=== PATIENT | male | born 1950 | race American Indian/Alaskan Native ===

== ENCOUNTER 2016-07-26 19:47 | Inpatient (IN) | payer MEDICARE ==
[2016-07-26 20:37] LABS: Basophils % (Auto) 1.4 % (0.0-1.8); Eosinophils % (Auto) 0.2 % (0.0-4.3); Hematocrit 35.1 % (35.5-45.6); Hemoglobin 11.8 gm/dl (11.8-15.2); Mean Corpuscular HGB Conc 34 % (32-34); Mean Corpuscular Hemoglobin 33 pg (28-32); Mean Corpuscular Volume 98 fl (84-94); Platelet Count 267 K/mm3 (140-440); Red Blood Count 3.59 M/mm3 (3.65-5.03); Red Cell Distribution Width 14.4 % (13.2-15.2); White Blood Count 12.3 K/mm3 (4.5-11.0)
[2016-07-26] MEDS ORDERED: XOPENEX IH ONE (20:47)
[2016-07-26] MEDS ORDERED: ATROVENT IH ONE (20:47)
--- NOTE | 2016-07-26 20:52 | Emergency Department Report ---
ED Shortness of Breath HPI - General Chief Complaint: Dyspnea/Respdistress Stated Complaint: LOW O2 Time Seen by Provider: 07/26/16 20:40 Source: patient, EMS Mode of arrival: Stretcher Limitations: No Limitations - History of Present Illness Initial Comments: 65-year-old male with a past medical history dementia, hypertension, alcohol and drug abuse, and chronic knee pain presents to the hospital from anger with hypoxia. Patient drove himself to [facility] to be admitted for alcohol and cocaine detox. Patient is drowsy but arousable to tactile stimulation and voice. He is oriented to year, self, and states places [facility]. Patient is inconsistent with his history first he states he did not have any drugs today than he states he had alcohol and cocaine 4-5 hours ago. He complains of continued chronic knee pain and denies any chest pain, cough, or shortness of breath. He does smoke cigarettes but denies lung disease or home oxygen use. - Related Data Home Medications Medication Instructions Recorded Confirmed Last Taken Atarax 25 mg PO DAILY 07/26/16 07/26/16 Unknown Descovy 200-25 mg Tablet 25 mg PO DAILY 07/26/16 07/26/16 Unknown Kaletra 200-50 mg 200 mg PO BID 07/26/16 07/26/16 Unknown PriLOSEC 20 mg PO DAILY 07/26/16 07/26/16 Unknown Zestril 20 mg PO DAILY 07/26/16 07/26/16 Unknown metFORMIN 1,000 mg PO DAILY 07/26/16 07/26/16 Unknown Previous Rx's Medication Instructions Recorded Last Taken Type Azithromycin [Zithromax TAB] 500 mg PO QDAY #4 tablet 07/27/16 Unknown Rx Ipratropium/Albuterol Sulfate 1 spray IH QID #1 aer.w.adap 07/27/16 Unknown Rx [Combivent Respimat] Prednisone [predniSONE 5 mg (6-Day 5 mg PO .TAPER #1 tab.ds.pk 07/27/16 Unknown Rx Pack, 21 Tabs)] Allergies Allergy/AdvReac Type Severity Reaction Status Date / Time Sulfa (Sulfonamide Allergy Anaphylaxis Verified 07/26/16 20:03 Antibiotics) ED Review of Systems ROS: Stated complaint: LOW O2 Other details as noted in HPI Comment: All other systems reviewed and negative Other: Constitutional: No fevers chills Eyes: No eye pain visual changes ENT: No ear pain or throat pain Neck: Denies pain Respiratory: Denies cough wheezing Cardiovascular: Denies chest pain, palpitations, syncope GI: Denies abdominal pain, nausea, vomiting, diarrhea : Denies dysuria Musculoskeletal: Denies back pain Skin: Denies rash, lesions, erythema Neurologic: Denies headache, numbness, weakness Psychiatric: Denies suicidal ideation, hallucinations ED Past Medical Hx - Past Medical History Previous Medical History?: Yes Hx Hypertension: Yes Hx Psychiatric Treatment: Yes (ETOH abuse) Hx Dementia: Yes Additional medical history: chronic knee pain - Surgical History Past Surgical History?: Yes - Social History Smoking Status: Current Every Day Smoker Substance Use Type: Alcohol - Medications Home Medications: Home Medications Medication Instructions Recorded Confirmed Last Taken Type Atarax 25 mg PO DAILY 07/26/16 07/26/16 Unknown History Descovy 200-25 mg Tablet 25 mg PO DAILY 07/26/16 07/26/16 Unknown History Kaletra 200-50 mg 200 mg PO BID 07/26/16 07/26/16 Unknown History PriLOSEC 20 mg PO DAILY 07/26/16 07/26/16 Unknown History Zestril 20 mg PO DAILY 07/26/16 07/26/16 Unknown History metFORMIN 1,000 mg PO DAILY 07/26/16 07/26/16 Unknown History Azithromycin [Zithromax TAB] 500 mg PO QDAY #4 tablet 07/27/16 Unknown Rx Ipratropium/Albuterol Sulfate 1 spray IH QID #1 aer.w.adap 07/27/16 Unknown Rx [Combivent Respimat] Prednisone [predniSONE 5 mg (6-Day 5 mg PO .TAPER #1 tab.ds.pk 07/27/16 Unknown Rx Pack, 21 Tabs)] ED Physical Exam - General Limitations: No Limitations - Other Other exam information: General: Drowsy with inconsistent history Head exam: Atraumatic, normocephalic Eyes exam: Normal appearance, pupils equal reactive to light ENT: Moist mucous membrane, normal oropharynx Neck exam: Normal inspection, full range of motion, no meningismus nontender Respiratory exam: No tachypnea or accessory muscle use positive expiratory wheezing Cardiovascular: Normal rate and rhythm, normal heart sounds Abdomen: Soft, nondistended, and nontender, with normal bowel sounds, no rebound, or guarding Extremity: Full range of motion normal inspection no deformity Back: Normal Inspection, full range of motion, no tenderness Neurologic: Drowsy but arousable, oriented x3, cranial nerves intact, no motor or sensory deficit Psychiatric: normal affect, normal mood Skin: Warm, dry, intact ED Course Vital Signs 07/26/16 07/27/16 23:38 00:42 Pulse Rate 98 H Respiratory 16 Rate Blood Pressure 122/68 [Left] O2 Sat by Pulse 96 94 Oximetry - ABG Interpretation Ph: 7.83 PCO2: 44 PO2: 46 Bicarbonate: 26 Interpretation: other (hypoxia) ED Medical Decision Making - Lab Data Result diagrams: 07/27/16 05:32 07/27/16 05:32 Lab Results 07/26/16 07/26/16 07/26/16 Range/Units 20:19 20:19 20:19 WBC 12.3 H (4.5-11.0) K/mm3 RBC 3.59 L (3.65-5.03) M/mm3 Hgb 11.8 (11.8-15.2) gm/dl Hct 35.1 L (35.5-45.6) % MCV 98 H (84-94) fl MCH 33 H (28-32) pg MCHC 34 (32-34) % RDW 14.4 (13.2-15.2) % Plt Count 267 (140-440) K/mm3 Lymph % (Auto) 18.7 (13.4-35.0) % [place] % (Auto) 12.8 H (0.0-7.3) % Eos % (Auto) 0.2 (0.0-4.3) % Baso % (Auto) 1.4 (0.0-1.8) % Lymph # 2.3 (1.2-5.4) K/mm3 [place] # 1.6 H (0.0-0.8) K/mm3 Eos # 0.0 (0.0-0.4) K/mm3 Baso # 0.2 H (0.0-0.1) K/mm3 Seg Neutrophils % 66.9 (40.0-70.0) % Seg Neutrophils # 8.2 H (1.8-7.7) K/mm3 PT (12.2-14.9) Sec. INR (0.87-1.13) APTT (24.2-36.6) Sec. D-Dimer (0-234) ng/mlDDU POC ABG pH (7.35-7.45) POC ABG pCO2 (35-45) POC ABG pO2 (80-105) POC ABG HCO3 POC ABG Total CO2 POC ABG O2 Sat POC ABG Base Excess FiO2 % Sodium 137 (137-145) mmol/L Potassium 4.8 (3.6-5.0) mmol/L Chloride 100.4 (98-107) mmol/L Carbon Dioxide 26 (22-30) mmol/L Anion Gap 15 mmol/L BUN 10 (9-20) mg/dL Creatinine 0.8 (0.8-1.5) mg/dL Estimated GFR > 60 ml/min BUN/Creatinine Ratio 12.50 % Glucose 98 (75-100) mg/dL Calcium 9.1 (8.4-10.2) mg/dL Magnesium (1.7-2.3) mg/dL Total Bilirubin 0.80 (0.1-1.2) mg/dL Direct Bilirubin 0.3 H (0-0.2) mg/dL Indirect Bilirubin 0.5 mg/dL AST 23 (5-40) units/L ALT 19 (7-56) units/L Alkaline Phosphatase 94 (35-129) units/L Ammonia (25-60) umol/L Total Creatine Kinase 76 (55-170) units/L CK-MB (CK-2) 2.2 (0.0-4.0) ng/mL CK-MB (CK-2) Rel Index 2.8 (0-4) Troponin T < 0.010 (0.00-0.029) ng/mL Total Protein 8.2 (6.3-8.2) g/dL Albumin 3.6 L (3.9-5) g/dL Albumin/Globulin Ratio 0.8 % Urine Color (Yellow) Urine Turbidity (Clear) Urine pH (5.0-7.0) Ur Specific [place] (1.003-1.030) Urine Protein (Negative) mg/dL Urine Glucose (UA) (Negative) mg/dL Urine Ketones (Negative) mg/dL Urine Blood (Negative) Urine Nitrite (Negative) Urine Bilirubin (Negative) Urine Urobilinogen (<2.0) mg/dL Ur Leukocyte Esterase (Negative) Urine WBC (Auto) (0.0-6.0) /HPF Urine RBC (Auto) (0.0-6.0) /HPF U Epithel Cells (Auto) (0-13.0) /HPF Hyaline Casts /LPF Urine Mucus /HPF Urine Opiates Screen Urine Methadone Screen Ur Barbiturates Screen Ur Phencyclidine Scrn Ur Amphetamines Screen U Benzodiazepines Scrn Urine Cocaine Screen U Marijuana (THC) Screen Drugs of Abuse Note Plasma/Serum Alcohol (0-0.07) gm% 07/26/16 07/26/16 07/26/16 Range/Units 20:19 21:09 21:20 WBC (4.5-11.0) K/mm3 RBC (3.65-5.03) M/mm3 Hgb (11.8-15.2) gm/dl Hct (35.5-45.6) % MCV (84-94) fl MCH (28-32) pg MCHC (32-34) % RDW (13.2-15.2) % Plt Count (140-440) K/mm3 Lymph % (Auto) (13.4-35.0) % [place] % (Auto) (0.0-7.3) % Eos % (Auto) (0.0-4.3) % Baso % (Auto) (0.0-1.8) % Lymph # (1.2-5.4) K/mm3 [place] # (0.0-0.8) K/mm3 Eos # (0.0-0.4) K/mm3 Baso # (0.0-0.1) K/mm3 Seg Neutrophils % (40.0-70.0) % Seg Neutrophils # (1.8-7.7) K/mm3 PT 13.3 (12.2-14.9) Sec. INR 1.02 (0.87-1.13) APTT 30.9 (24.2-36.6) Sec. D-Dimer (0-234) ng/mlDDU POC ABG pH 7.381 (7.35-7.45) POC ABG pCO2 44.7 (35-45) POC ABG pO2 46 L (80-105) POC ABG HCO3 26.5 POC ABG Total CO2 28 POC ABG O2 Sat 81 POC ABG Base Excess 1 FiO2 21 % Sodium (137-145) mmol/L Potassium (3.6-5.0) mmol/L Chloride (98-107) mmol/L Carbon Dioxide (22-30) mmol/L Anion Gap mmol/L BUN (9-20) mg/dL Creatinine (0.8-1.5) mg/dL Estimated GFR ml/min BUN/Creatinine Ratio % Glucose (75-100) mg/dL Calcium (8.4-10.2) mg/dL Magnesium 1.80 (1.7-2.3) mg/dL Total Bilirubin (0.1-1.2) mg/dL Direct Bilirubin (0-0.2) mg/dL Indirect Bilirubin mg/dL AST (5-40) units/L ALT (7-56) units/L Alkaline Phosphatase (35-129) units/L Ammonia (25-60) umol/L Total Creatine Kinase (55-170) units/L CK-MB (CK-2) (0.0-4.0) ng/mL CK-MB (CK-2) Rel Index (0-4) Troponin T (0.00-0.029) ng/mL Total Protein (6.3-8.2) g/dL Albumin (3.9-5) g/dL Albumin/Globulin Ratio % Urine Color (Yellow) Urine Turbidity (Clear) Urine pH (5.0-7.0) Ur Specific [place] (1.003-1.030) Urine Protein (Negative) mg/dL Urine Glucose (UA) (Negative) mg/dL Urine Ketones (Negative) mg/dL Urine Blood (Negative) Urine Nitrite (Negative) Urine Bilirubin (Negative) Urine Urobilinogen (<2.0) mg/dL Ur Leukocyte Esterase (Negative) Urine WBC (Auto) (0.0-6.0) /HPF Urine RBC (Auto) (0.0-6.0) /HPF U Epithel Cells (Auto) (0-13.0) /HPF Hyaline Casts /LPF Urine Mucus /HPF Urine Opiates Screen Urine Methadone Screen Ur Barbiturates Screen Ur Phencyclidine Scrn Ur Amphetamines Screen U Benzodiazepines Scrn Urine Cocaine Screen U Marijuana (THC) Screen Drugs of Abuse Note Plasma/Serum Alcohol (0-0.07) gm% 07/26/16 07/26/16 07/26/16 Range/Units 21:20 21:20 21:20 WBC (4.5-11.0) K/mm3 RBC (3.65-5.03) M/mm3 Hgb (11.8-15.2) gm/dl Hct (35.5-45.6) % MCV (84-94) fl MCH (28-32) pg MCHC (32-34) % RDW (13.2-15.2) % Plt Count (140-440) K/mm3 Lymph % (Auto) (13.4-35.0) % [place] % (Auto) (0.0-7.3) % Eos % (Auto) (0.0-4.3) % Baso % (Auto) (0.0-1.8) % Lymph # (1.2-5.4) K/mm3 [place] # (0.0-0.8) K/mm3 Eos # (0.0-0.4) K/mm3 Baso # (0.0-0.1) K/mm3 Seg Neutrophils % (40.0-70.0) % Seg Neutrophils # (1.8-7.7) K/mm3 PT (12.2-14.9) Sec. INR (0.87-1.13) APTT (24.2-36.6) Sec. D-Dimer 383.65 H (0-234) ng/mlDDU POC ABG pH (7.35-7.45) POC ABG pCO2 (35-45) POC ABG pO2 (80-105) POC ABG HCO3 POC ABG Total CO2 POC ABG O2 Sat POC ABG Base Excess FiO2 % Sodium (137-145) mmol/L Potassium (3.6-5.0) mmol/L Chloride (98-107) mmol/L Carbon Dioxide (22-30) mmol/L Anion Gap mmol/L BUN (9-20) mg/dL Creatinine (0.8-1.5) mg/dL Estimated GFR ml/min BUN/Creatinine Ratio % Glucose (75-100) mg/dL Calcium (8.4-10.2) mg/dL Magnesium (1.7-2.3) mg/dL Total Bilirubin (0.1-1.2) mg/dL Direct Bilirubin (0-0.2) mg/dL Indirect Bilirubin mg/dL AST (5-40) units/L ALT (7-56) units/L Alkaline Phosphatase (35-129) units/L Ammonia 47.0 (25-60) umol/L Total Creatine Kinase (55-170) units/L CK-MB (CK-2) (0.0-4.0) ng/mL CK-MB (CK-2) Rel Index (0-4) Troponin T (0.00-0.029) ng/mL Total Protein (6.3-8.2) g/dL Albumin (3.9-5) g/dL Albumin/Globulin Ratio % Urine Color (Yellow) Urine Turbidity (Clear) Urine pH (5.0-7.0) Ur Specific [place] (1.003-1.030) Urine Protein (Negative) mg/dL Urine Glucose (UA) (Negative) mg/dL Urine Ketones (Negative) mg/dL Urine Blood (Negative) Urine Nitrite (Negative) Urine Bilirubin (Negative) Urine Urobilinogen (<2.0) mg/dL Ur Leukocyte Esterase (Negative) Urine WBC (Auto) (0.0-6.0) /HPF Urine RBC (Auto) (0.0-6.0) /HPF U Epithel Cells (Auto) (0-13.0) /HPF Hyaline Casts /LPF Urine Mucus /HPF Urine Opiates Screen Urine Methadone Screen Ur Barbiturates Screen Ur Phencyclidine Scrn Ur Amphetamines Screen U Benzodiazepines Scrn Urine Cocaine Screen U Marijuana (THC) Screen Drugs of Abuse Note Plasma/Serum Alcohol < 0.01 (0-0.07) gm% 07/26/16 07/26/16 Range/Units Unknown Unknown WBC (4.5-11.0) K/mm3 RBC (3.65-5.03) M/mm3 Hgb (11.8-15.2) gm/dl Hct (35.5-45.6) % MCV (84-94) fl MCH (28-32) pg MCHC (32-34) % RDW (13.2-15.2) % Plt Count (140-440) K/mm3 Lymph % (Auto) (13.4-35.0) % [place] % (Auto) (0.0-7.3) % Eos % (Auto) (0.0-4.3) % Baso % (Auto) (0.0-1.8) % Lymph # (1.2-5.4) K/mm3 [place] # (0.0-0.8) K/mm3 Eos # (0.0-0.4) K/mm3 Baso # (0.0-0.1) K/mm3 Seg Neutrophils % (40.0-70.0) % Seg Neutrophils # (1.8-7.7) K/mm3 PT (12.2-14.9) Sec. INR (0.87-1.13) APTT (24.2-36.6) Sec. D-Dimer (0-234) ng/mlDDU POC ABG pH (7.35-7.45) POC ABG pCO2 (35-45) POC ABG pO2 (80-105) POC ABG HCO3 POC ABG Total CO2 POC ABG O2 Sat POC ABG Base Excess FiO2 % Sodium (137-145) mmol/L Potassium (3.6-5.0) mmol/L Chloride (98-107) mmol/L Carbon Dioxide (22-30) mmol/L Anion Gap mmol/L BUN (9-20) mg/dL Creatinine (0.8-1.5) mg/dL Estimated GFR ml/min BUN/Creatinine Ratio % Glucose (75-100) mg/dL Calcium (8.4-10.2) mg/dL Magnesium (1.7-2.3) mg/dL Total Bilirubin (0.1-1.2) mg/dL Direct Bilirubin (0-0.2) mg/dL Indirect Bilirubin mg/dL AST (5-40) units/L ALT (7-56) units/L Alkaline Phosphatase (35-129) units/L Ammonia (25-60) umol/L Total Creatine Kinase (55-170) units/L CK-MB (CK-2) (0.0-4.0) ng/mL CK-MB (CK-2) Rel Index (0-4) Troponin T (0.00-0.029) ng/mL Total Protein (6.3-8.2) g/dL Albumin (3.9-5) g/dL Albumin/Globulin Ratio % Urine Color Yellow (Yellow) Urine Turbidity Clear (Clear) Urine pH 5.0 (5.0-7.0) Ur Specific [place] 1.011 (1.003-1.030) Urine Protein <15 mg/dl (Negative) mg/dL Urine Glucose (UA) Neg (Negative) mg/dL Urine Ketones Neg (Negative) mg/dL Urine Blood Sm (Negative) Urine Nitrite Neg (Negative) Urine Bilirubin Neg (Negative) Urine Urobilinogen < 2.0 (<2.0) mg/dL Ur Leukocyte Esterase Neg (Negative) Urine WBC (Auto) < 1.0 (0.0-6.0) /HPF Urine RBC (Auto) 3.0 (0.0-6.0) /HPF U Epithel Cells (Auto) < 1.0 (0-13.0) /HPF Hyaline Casts 1 /LPF Urine Mucus Few /HPF Urine Opiates Screen Presumptive negative Urine Methadone Screen Presumptive negative Ur Barbiturates Screen Presumptive negative Ur Phencyclidine Scrn Presumptive negative Ur Amphetamines Screen Presumptive negative U Benzodiazepines Scrn Presumptive positive Urine Cocaine Screen Presumptive positive U Marijuana (THC) Screen Presumptive negative Drugs of Abuse Note Disclamer Plasma/Serum Alcohol (0-0.07) gm% - EKG Data -: EKG Interpreted by Me (sinus tach 103, no stemi or t inv) - EKG Data When compared to previous EKG there are: previous EKG unavailable - Radiology Data Radiology results: report reviewed (cta chest: neg for pe, + chronic stephanie dz, left lung nodule), image reviewed (cxr: naf) - Medical Decision Making Patient has significant hypoxia room air with respiratory symptoms. Positive wheezing improved after nebs and steroids. Chest x-ray unremarkable. CT angiogram pending at disposition given the mild elevation in d-dimer. - Differential Diagnosis COPD, asthma, bronchitis, CHF, PE Critical Care Time: No Critical care attestation.: If time is entered above; I have spent that time in minutes in the direct care of this critically ill patient, excluding procedure time. ED Disposition Clinical Impression: Hypoxia, Acute bronchitis, Alcohol abuse, Cocaine abuse, Tobacco abuse Disposition: OP ADMITTED IP TO THIS HOSP Is pt being admited?: Yes Condition: Stable Time of Disposition: 23:29 (Dr ocasio/ ct pending)
[2016-07-26 20:53] LABS: Anion Gap 15 mmol/L; Blood Urea Nitrogen 10 mg/dL (9-20); Calcium 9.1 mg/dL (8.4-10.2); Carbon Dioxide 26 mmol/L (22-30); Chloride 100.4 mmol/L (98-107); Glucose 98 mg/dL (75-100); Potassium 4.8 mmol/L (3.6-5.0); Sodium 137 mmol/L (137-145)
[2016-07-26 21:01] LABS: Urine Drugs of Abuse Note Disclamer
[2016-07-26 21:13] LABS: Bilirubin,Urine NEG (Negative); Blood,Urine SM (Negative); Ketones,Urine NEG (Negative); Leukocyte Esterase,Urine NEG (Negative); Mucus,Urine FEW /HPF; Nitrite,Urine NEG (Negative); Protein,Urine <15 mg/dL mg/dL (Negative); Urobilinogen,Urine < 2.0 mg/dL (<2.0); WBC,Urine < 1.0 /HPF (0.0-6.0)
[2016-07-26 21:18] LABS: ISTAT Base Excess 1; ISTAT HCO3 26.5; ISTAT PCO2 44.7 (35-45); ISTAT PH 7.381 (7.35-7.45); ISTAT PO2 46 (80-105); ISTAT SO2 81; ISTAT TCO2 28
[2016-07-26 21:38] LABS: Creatine Kinase MB 2.2 ng/mL (0.0-4.0)
[2016-07-26 21:40] LABS: Albumin 3.6 g/dL (3.9-5); Albumin/Globulin Ratio 0.8 %; Bilirubin,Direct 0.3 mg/dL (0-0.2); Bilirubin,Indirect 0.5 mg/dL; Bilirubin,Total 0.8 mg/dL (0.1-1.2); Total Protein 8.2 g/dL (6.3-8.2)
[2016-07-26 21:54] LABS: INR 1.02 (0.87-1.13)
[2016-07-26 21:55] LABS: Partial Thromboplastin Time 30.9 Sec. (24.2-36.6)
[2016-07-26] MEDS ORDERED: VITAMIN B-1 100 MG, FOLVITE 1 MG, INFUVITE 10 ML in NACL 0.9% 1000 ML 1,000 ML IV ONE (22:00)
[2016-07-26] MEDS ORDERED: ATIVAN IV PRN ×2 (23:32)
--- NOTE | 2016-07-27 00:21 | History and Physical Report ---
History of Present Illness Date of examination: 07/27/16 Chief complaint: "They said I have trouble breathing" History of present illness: Patient is a 65-year-old man with history of HIV, type 2 diabetes mellitus, hypertension, GERD, OA of knees, tobacco dependency, polysubstance abuse including alcohol abuse and crack cocaine who initially drove himself to [place] for voluntary admission. Staff noticed that he was having trouble breathing with minimal activity so he brought to [facility] emergency department. Patient gives inconsistent history. He is denying any complaints. He falls asleep easily. Past medical history: As HPI Past surgical history: 2 arthroscopic surgeries on each knee Social history: Tobacco dependency, crack cocaine, alcohol abuse, benzodiazepine use Family history: Patient denies ROS: as HPI and all other ROS reviewed and negative. Medications and Allergies Allergies Allergy/AdvReac Type Severity Reaction Status Date / Time Sulfa (Sulfonamide Allergy Anaphylaxis Verified 07/26/16 20:03 Antibiotics) Home Medications Medication Instructions Recorded Confirmed Last Taken Type Atarax 25 mg PO DAILY 07/26/16 07/26/16 Unknown History Descovy 200-25 mg Tablet 25 mg PO DAILY 07/26/16 07/26/16 Unknown History Kaletra 200-50 mg 200 mg PO BID 07/26/16 07/26/16 Unknown History PriLOSEC 20 mg PO DAILY 07/26/16 07/26/16 Unknown History Zestril 20 mg PO DAILY 07/26/16 07/26/16 Unknown History metFORMIN 1,000 mg PO DAILY 07/26/16 07/26/16 Unknown History Active Meds: Active Medications Heparin Sodium (Porcine) (Heparin) 5,000 unit SUB-Q Q8HR YURIDIA Lorazepam (Ativan) 2 mg IV Q1HR PRN PRN Reason: CIWA-Ar 8-15 Lorazepam (Ativan) 4 mg IV Q1HR PRN PRN Reason: CIWA-Ar 16-25 Miscellaneous Medication (Prilosec) 20 mg PO DAILY YURIDIA Miscellaneous Medication (Zestril) 20 mg PO DAILY YURIDIA Miscellaneous Medication (Atarax) 25 mg PO DAILY YURIDIA Exam - Physical Exam Narrative exam: GEN: unkempt, WDWN, NAD at rest but he has conversational dyspnea moderate sensory muscle usage, somnolent, ORIENTATED 3 HEENT: NCAT, PERRL, EOMI, OP CLEAR NECK: SUPPLE, NO THYROMEGALY, NO JVD, NO LAD CVS: Regular tachycardia NORMAL S1S2 LUNGS/CHEST: Coarse bilateral rhonchi, NORMAL CHEST EXPANSION B, diminished AIR ENTRY B ABD: SOFT NTND, GBS, NO REBOUND OR GUARDING EXT/SKIN: NO SIGNIFICANT EDEMA, MULTIPLE EXCORIATIONS THORAX AND BACK FROM SCRATCHING MSK: FROM X 4 EXTREMITIES NEURO: CN 2-12 GROSSLY INTACT, NO FOCAL DEFICITS PSY: CALM - Constitutional Vitals: Temp Pulse Resp BP Pulse Ox 98 H 16 122/68 96 07/26/16 23:38 07/26/16 23:38 07/26/16 23:38 07/26/16 23:38 Results - Labs CBC & Chem 7: 07/26/16 20:19 07/26/16 20:19 Labs: Abnormal lab results 07/26/16 07/26/16 07/26/16 Range/Units 20:19 20:19 21:09 WBC 12.3 H (4.5-11.0) K/mm3 RBC 3.59 L (3.65-5.03) M/mm3 Hct 35.1 L (35.5-45.6) % MCV 98 H (84-94) fl MCH 33 H (28-32) pg [place] % (Auto) 12.8 H (0.0-7.3) % [place] # 1.6 H (0.0-0.8) K/mm3 Baso # 0.2 H (0.0-0.1) K/mm3 Seg Neutrophils # 8.2 H (1.8-7.7) K/mm3 D-Dimer (0-234) ng/mlDDU POC ABG pO2 46 L (80-105) Direct Bilirubin 0.3 H (0-0.2) mg/dL Albumin 3.6 L (3.9-5) g/dL 07/26/16 Range/Units 21:20 WBC (4.5-11.0) K/mm3 RBC (3.65-5.03) M/mm3 Hct (35.5-45.6) % MCV (84-94) fl MCH (28-32) pg [place] % (Auto) (0.0-7.3) % [place] # (0.0-0.8) K/mm3 Baso # (0.0-0.1) K/mm3 Seg Neutrophils # (1.8-7.7) K/mm3 D-Dimer 383.65 H (0-234) ng/mlDDU POC ABG pO2 (80-105) Direct Bilirubin (0-0.2) mg/dL Albumin (3.9-5) g/dL - Imaging and Cardiology Chest x-ray: report reviewed Assessment and Plan Patient is a 65-year-old man with history of HIV, type 2 diabetes mellitus, hypertension, GERD, OA of knees, tobacco dependency, polysubstance abuse including alcohol abuse and crack cocaine who initially drove himself to [place] for voluntary admission. Staff noticed that he was having trouble breathing with minimal activity so he brought to [facility] emergency department. Patient gives inconsistent history. He is denying any complaints. He falls asleep easily. PO2 of only 48 only ABGs. UDS positive for benzodiazepine cocaine. -Acute hypoxic respiratory failure most likely COPD: Treat with O2, CTA of the chest pending for PE -Acute exacerbation of COPD: Steroids, nebulizer treatment [id number] -Sepsis bronchitis: Blood cultures 2 sets, antibiotics, IV fluids -Cocaine and alcohol tobacco abuse: Cessation Counseling done, he states that is why he went to [place] -Acute metabolic encephalopathy most likely due to recent drug use -DVT prophylaxis: Subcutaneous heparin -HIV, he doesnt know his last CD4 count: please verify HIV meds Full code
[2016-07-27] MEDS ORDERED: PROVENTIL IH PRN (00:26)
[2016-07-27] MEDS ORDERED: D50W (25GM) IV PRN (00:54)
[2016-07-27] MEDS ORDERED: NACL 0.45% 1000 ML 1,000 ML IV SCH (01:00)
--- NOTE | 2016-07-27 01:23 | Cat Scan Report ---
FINAL REPORT EXAM: CT ANGIO CHEST HISTORY: hypoxia, elevated ddimer TECHNIQUE: High-resolution helical axial images were obtained of the chest during intravenous administration of iodinated contrast. Images are reconstructed in the sagittal and coronal planes. PRIORS: None. FINDINGS: There is no evidence of pulmonary embolism, the pulmonary arteries opacify normally. There is coronary artery atherosclerotic calcification. The heart is mildly enlarged. The thoracic aorta appears normal without aneurysm or dissection. There is a 1.5 cm nodule in the superior segment of the left lower lobe with internal coarse calcification. This most likely represents a hamartoma or granuloma. The interstitial markings are diffusely mildly prominent. Images through the upper abdomen show a large fatty liver. The liver was not completely scanned. The bones are unremarkable. IMPRESSION: 1. No evidence of pulmonary embolism. 2. Coronary artery atherosclerotic disease 3. 1.5 cm nodule in the superior segment of the left lower lobe consistent with a hamartoma or granuloma. 4. Mildly prominent interstitial markings likely due to chronic interstitial lung disease.
[2016-07-27] MEDS ORDERED: HEPARIN ONE (04:16)
[2016-07-27 06:07] LABS: BUN/Creatinine Ratio 15.71; Blood Urea Nitrogen 11 mg/dL (9-20); Calcium 8.7 mg/dL (8.4-10.2); Carbon Dioxide 22 mmol/L (22-30); Glucose 200 mg/dL (75-100)
[2016-07-27 06:08] LABS: Anion Gap 18 mmol/L; Chloride 99.8 mmol/L (98-107); Potassium 4.7 mmol/L (3.6-5.0); Sodium 135 mmol/L (137-145)
[2016-07-27 06:10] LABS: Hematocrit 33.7 % (35.5-45.6); Hemoglobin 11.2 gm/dl (11.8-15.2); Mean Corpuscular HGB Conc 33 % (32-34); Mean Corpuscular Hemoglobin 32 pg (28-32); Mean Corpuscular Volume 98 fl (84-94); Platelet Count 256 K/mm3 (140-440); Red Blood Count 3.45 M/mm3 (3.65-5.03); Red Cell Distribution Width 14.5 % (13.2-15.2); White Blood Count 9.7 K/mm3 (4.5-11.0)
[2016-07-27] MEDS: DUONEB 0.5 MG-3 MG/3 ML SOLN IH SCH ×3 (08:28→20:09)
[2016-07-27] MEDS: NOVOLOG SUB-Q SCH ×3 (08:41→17:25)
--- NOTE | 2016-07-27 09:06 | XRay Report ---
Chest 2 views: History: Shortness of breath. Findings: Normal cardiomediastinal silhouette. Trachea is midline. Radiopaque density measuring 1 cm in diameter noted in the projection of left upper chest. This may be a calcified granuloma or hamartoma. No consolidation or pleural effusion. No pneumothorax. Impression: Calcified granuloma or hamartoma left chest.
[2016-07-27 09:56] VITALS: BP 121/73
[2016-07-27] MEDS ORDERED: ATARAX PO SCH (10:00)
[2016-07-27] MEDS ORDERED: LISINOPRIL 20 MG PO SCH (10:00)
[2016-07-27] MEDS ORDERED: PROTONIX PO SCH (10:00)
[2016-07-27] MEDS ORDERED: ROCEPHIN/NS 1 GM/50 ML 1 GM/50 ML BAG IV SCH (10:00)
[2016-07-27] MEDS ORDERED: ZITHROMAX 500 MG in NACL 0.9% 250ML 250 ML IV SCH (10:00)
[2016-07-27] MEDS ORDERED: ZESTRIL PO SCH (10:00)
[2016-07-27] MEDS ORDERED: ATARAX 25 MG PO SCH (10:00)
[2016-07-27] MEDS ORDERED: PRILOSEC 20 MG PO SCH (10:00)
--- NOTE | 2016-07-27 12:53 | Discharge Summary ---
Providers - Providers Date of Admission: 07/27/16 00:11 Attending physician: LESLI BRIONES MD Primary care physician: [employer] [employer] Hospitalization Condition: Stable Hospital course: Patient is a 65-year-old man with history of HIV, type 2 diabetes mellitus, hypertension, GERD, OA of knees, tobacco dependency, polysubstance abuse including alcohol abuse and crack cocaine who initially drove himself [place] [place] [facility] admission [facility]. Staff noticed that he was having trouble breathing with minimal activity so he brought to [facility] emergency department. He was found to be very drowsy, UDS was positive for benzodiazepines and cocaine, blood gas shows significant hypoxia with PO2 in the 40s, CXR and CTA chest was wnl. He was promptly admitted for substance overdose and hypoxic respiratory failure. He was treated with supplemental oxygen as having IV fluids, , nebulizers, steroids and antibiotics. He clinically improved, he was counseled about polysubstance abuse he verbalized understanding and plans to go back to [place] to finish treatment. Discharge diagnoses Toxic Metabolic encephalopathy Acute hypoxic Respiratory Failure COPD exacerbation Polysubstance abuse, Cocaine, Etoh and benzodiazepines HIV disease Disposition: DC/TX ANOTHER TYPE HEALTHCARE Time spent for discharge: 35 minutes Core Measure Documentation - Palliative Care Palliative Care/ Comfort Measures: Not Applicable - Core Measures Any of the following diagnoses?: none Exam - Constitutional Vitals: Temp Pulse Resp BP Pulse Ox 98.5 F 76 20 121/73 94 07/27/16 09:54 07/27/16 10:19 07/27/16 09:54 07/27/16 10:19 07/27/16 02:49 General appearance: Present: no acute distress, well-nourished - EENT Eyes: Present: PERRL ENT: hearing intact, clear oral mucosa - Neck Neck: Present: supple, normal ROM - Respiratory Respiratory effort: normal Respiratory: bilateral: CTA - Cardiovascular Heart Sounds: Present: S1 & S2. Absent: rub, click - Extremities Extremities: pulses symmetrical, No edema Peripheral Pulses: within normal limits - Abdominal General gastrointestinal: Present: soft, non-tender, non-distended, normal bowel sounds Male genitourinary: Present: normal - Integumentary Integumentary: Present: clear, warm, dry - Musculoskeletal Musculoskeletal: gait normal, strength equal bilaterally - Psychiatric Psychiatric: appropriate mood/affect, intact judgment & insight - Neurologic Neurologic: CNII-XII intact, moves all extremities Plan Follow up with: PRIMARY CARE, [Primary Care Provider] - 7 Days Prescriptions: Azithromycin [Zithromax TAB] 500 mg PO QDAY #4 tablet Ipratropium/Albuterol Sulfate [Combivent Respimat] 1 spray IH QID #1 aer.[email or web address] Prednisone [predniSONE 5 mg (6-Day Pack, 21 Tabs)] 5 mg PO .TAPER #1 tab.ds.pk
[2016-07-27] MEDS ORDERED: HEPARIN SUB-Q SCH (22:00)
== END 2016-07-27 18:00 | disposition home or self-care (01) | DRG 974 ==
LOC: ED 19:47 → CC2 07-27 00:11
PROVIDERS: ADMIT Internal Medicine; ATTEND Internal Medicine
PROC: 4A033R1 Measurement of Arterial Saturation, Peripheral, Percutaneous Approach (ICD-10-PCS; principal; 2016-07-27)
DX: A41.9 Sepsis, unspecified organism (principal); B20 Human immunodeficiency virus [HIV] disease; J96.01 Acute respiratory failure with hypoxia; G93.41 Metabolic encephalopathy; J44.1 Chronic obstructive pulmonary disease with (acute) exacerbation; I10 Essential (primary) hypertension; F03.90 Unspecified dementia, unspecified severity, without behavioral disturbance, psychotic disturbance, mood disturbance, and anxiety; F10.10 Alcohol abuse, uncomplicated; F17.210 Nicotine dependence, cigarettes, uncomplicated; F14.10 Cocaine abuse, uncomplicated; J20.9 Acute bronchitis, unspecified; E11.9 Type 2 diabetes mellitus without complications; K21.9 Gastro-esophageal reflux disease without esophagitis; M17.0 Bilateral primary osteoarthritis of knee; F11.10 Opioid abuse, uncomplicated; Z79.2 Long term (current) use of antibiotics; Z79.899 Other long term (current) drug therapy; Z88.2 Allergy status to sulfonamides
CPT/HCPCS: 36415; 71020; 71275; 80048; 80074; 80307; 80320; 81001; 82140; 82550; 82553; 82803; 82962; 83735; 84484; 85025; 85027; 85379; 85610; 85730; 87040; 93005; 93010; 94640; 96374; 96375; G0480; J0456; J0696; J1644; J1815; J2930; J3411; J7030; J7050; Q9967

== ENCOUNTER 2016-08-03 13:36 | Emergency (ER) | payer MEDICARE ==
[2016-08-03 14:43] LABS: Urine Drugs of Abuse Note Disclamer
[2016-08-03 14:51] LABS: Anion Gap 14 mmol/L; BUN/Creatinine Ratio 27.14; Blood Urea Nitrogen 19 mg/dL (9-20); Calcium 8.8 mg/dL (8.4-10.2); Carbon Dioxide 30 mmol/L (22-30); Chloride 94.9 mmol/L (98-107); Glucose 261 mg/dL (75-100); Potassium 5.2 mmol/L (3.6-5.0); Sodium 134 mmol/L (137-145)
[2016-08-03 14:53] LABS: Hematocrit 34.2 % (35.5-45.6); Hemoglobin 10.9 gm/dl (11.8-15.2); Mean Corpuscular HGB Conc 32 % (32-34); Mean Corpuscular Hemoglobin 32 pg (28-32); Mean Corpuscular Volume 99 fl (84-94); Platelet Count 270 K/mm3 (140-440); Red Blood Count 3.48 M/mm3 (3.65-5.03); Red Cell Distribution Width 14.4 % (13.2-15.2); White Blood Count 9.4 K/mm3 (4.5-11.0)
[2016-08-03 14:54] LABS: Bilirubin,Urine NEG (Negative); Blood,Urine NEG (Negative); Ketones,Urine NEG (Negative); Leukocyte Esterase,Urine NEG (Negative); Nitrite,Urine NEG (Negative); Protein,Urine <15 mg/dL mg/dL (Negative); WBC,Urine < 1.0 /HPF (0.0-6.0)
[2016-08-03 14:55] LABS: Basophils % (Auto) 0.6 % (0.0-1.8); Eosinophils % (Auto) 0.4 % (0.0-4.3)
--- NOTE | 2016-08-04 02:44 | Emergency Department Report ---
HPI - General Chief Complaint: Medical Clearance Time Seen by Provider: 08/04/16 02:35 - HPI HPI: Room 19 The patient is a 65-year-old male presenting with a chief complaint of desire for alcohol detox. The patient states he began feeling lonely began drinking beers. The patient subsequently went to [facility] seeking detox program for alcohol. The patient was sent to the ED for medical clearance. When asked how he is feeling currently the patient replies "pretty good." Patient has no complaints Location: Mental state Duration: [see above] Quality: Lonely Severity: Moderate Modifying factors: [see above] Context: [see above] Mode of transportation: [not driving] ED Past Medical Hx - Past Medical History Previous Medical History?: Yes Hx Hypertension: Yes Hx Diabetes: Yes Hx Psychiatric Treatment: Yes (ETOH abuse) Hx Dementia: Yes Hx HIV: Yes Additional medical history: chronic knee pain - Surgical History Past Surgical History?: Yes Additional Surgical History: knees - Family History Family history: no significant - Social History Smoking Status: Current Every Day Smoker Substance Use Type: Alcohol - Medications Home Medications: Home Medications Medication Instructions Recorded Confirmed Last Taken Type Atarax 25 mg PO DAILY 07/26/16 07/26/16 Unknown History Descovy 200-25 mg Tablet 25 mg PO DAILY 07/26/16 07/26/16 Unknown History Kaletra 200-50 mg 200 mg PO BID 07/26/16 07/26/16 Unknown History PriLOSEC 20 mg PO DAILY 07/26/16 07/26/16 Unknown History Zestril 20 mg PO DAILY 07/26/16 07/26/16 Unknown History metFORMIN 1,000 mg PO DAILY 07/26/16 07/26/16 Unknown History Azithromycin [Zithromax TAB] 500 mg PO QDAY #4 tablet 07/27/16 Unknown Rx Ipratropium/Albuterol Sulfate 1 spray IH QID #1 aer.w.adap 07/27/16 Unknown Rx [Combivent Respimat] Prednisone [predniSONE 5 mg (6-Day 5 mg PO .TAPER #1 tab.ds.pk 07/27/16 Unknown Rx Pack, 21 Tabs)] ED Review of Systems ROS: Stated complaint: MH EVAL Other details as noted in HPI Comment: All other systems reviewed and negative Constitutional: denies: chills, fever Eyes: denies: eye pain, eye discharge, vision change ENT: denies: ear pain, throat pain Respiratory: denies: cough, shortness of breath, wheezing Cardiovascular: denies: chest pain, palpitations Endocrine: no symptoms reported Gastrointestinal: denies: abdominal pain, nausea, diarrhea Genitourinary: denies: urgency, dysuria Musculoskeletal: denies: back pain, joint swelling, arthralgia Skin: denies: rash, lesions Neurological: denies: headache, weakness, paresthesias Psychiatric: other (lonely) Hematological/Lymphatic: denies: easy bleeding, easy bruising Physical Exam - Physical Exam Vital Signs: Vital Signs 08/03/16 08/03/16 08/03/16 14:14 23:57 23:59 Temperature 98.4 F 98.6 F 98.6 F Pulse Rate 98 H 97 H 98 H Respiratory 16 20 20 Rate Blood Pressure 139/77 137/75 Blood Pressure 137/75 [Left] O2 Sat by Pulse 99 99 99 Oximetry Physical Exam: GENERAL: The patient is well-developed well-nourished male standing in room not appearing to be in acute distress. [] HEENT: Normocephalic. Atraumatic. Extraocular motions are intact. Patient has moist mucous membranes. NECK: Supple. Trachea midline CHEST/LUNGS: Clear to auscultation. There is no respiratory distress noted. HEART/CARDIOVASCULAR: Regular. There is no tachycardia. There is no gallop rub or murmur. ABDOMEN: Abdomen is soft, nontender. Patient has normal bowel sounds. SKIN: There is no rash. There is no edema. There is no diaphoresis. NEURO: The patient is awake, alert, and oriented. The patient is cooperative. The patient has normal speech and gait. MUSCULOSKELETAL: There is no evidence of acute injury. ED Course Vital Signs 08/03/16 08/03/16 08/03/16 14:14 23:57 23:59 Temperature 98.4 F 98.6 F 98.6 F Pulse Rate 98 H 97 H 98 H Respiratory 16 20 20 Rate Blood Pressure 139/77 137/75 Blood Pressure 137/75 [Left] O2 Sat by Pulse 99 99 99 Oximetry ED Medical Decision Making - Lab Data Result diagrams: 08/03/16 14:27 08/03/16 14:27 Laboratory Tests 05/21/17 05/21/17 05/21/17 14:27 14:27 14:27 WBC 9.4 RBC 3.48 L Hgb 10.9 L Hct 34.2 L MCV 99 H MCH 32 MCHC 32 RDW 14.4 Plt Count 270 Lymph % (Auto) 16.6 [place] % (Auto) 6.1 Eos % (Auto) 0.4 Baso % (Auto) 0.6 Lymph # 1.6 [place] # 0.6 Eos # 0.0 Baso # 0.1 Seg Neutrophils % 76.3 H Seg Neutrophils # 7.2 Sodium 134 L Potassium 5.2 H Chloride 94.9 L Carbon Dioxide 30 Anion Gap 14 BUN 19 Creatinine 0.7 L Estimated GFR > 60 BUN/Creatinine Ratio 27.14 Glucose 261 H Calcium 8.8 Urine Color Urine Turbidity Urine pH Ur Specific [place] Urine Protein Urine Glucose (UA) Urine Ketones Urine Blood Urine Nitrite Urine Bilirubin Urine Urobilinogen Ur Leukocyte Esterase Urine WBC (Auto) Urine RBC (Auto) Urine Opiates Screen Urine Methadone Screen Ur Barbiturates Screen Ur Phencyclidine Scrn Ur Amphetamines Screen U Benzodiazepines Scrn Urine Cocaine Screen U Marijuana (THC) Screen Drugs of Abuse Note Plasma/Serum Alcohol < 0.01 08/03/16 08/03/16 14:38 14:38 WBC RBC Hgb Hct MCV MCH MCHC RDW Plt Count Lymph % (Auto) [place] % (Auto) Eos % (Auto) Baso % (Auto) Lymph # [place] # Eos # Baso # Seg Neutrophils % Seg Neutrophils # Sodium Potassium Chloride Carbon Dioxide Anion Gap BUN Creatinine Estimated GFR BUN/Creatinine Ratio Glucose Calcium Urine Color Yellow Urine Turbidity Clear Urine pH 6.0 Ur Specific [place] 1.009 Urine Protein <15 mg/dl Urine Glucose (UA) >=500 Urine Ketones Neg Urine Blood Neg Urine Nitrite Neg Urine Bilirubin Neg Urine Urobilinogen 2.0 Ur Leukocyte Esterase Neg Urine WBC (Auto) < 1.0 Urine RBC (Auto) 1.0 Urine Opiates Screen Presumptive negative Urine Methadone Screen Presumptive negative Ur Barbiturates Screen Presumptive negative Ur Phencyclidine Scrn Presumptive negative Ur Amphetamines Screen Presumptive negative U Benzodiazepines Scrn Presumptive positive Urine Cocaine Screen Presumptive negative U Marijuana (THC) Screen Presumptive negative Drugs of Abuse Note Disclamer Plasma/Serum Alcohol - Differential Diagnosis alcohol abuse Critical care attestation.: If time is entered above; I have spent that time in minutes in the direct care of this critically ill patient, excluding procedure time. ED Disposition Clinical Impression: Alcohol abuse Disposition: DC/TX PSY HOSP/PSY UNIT Is pt being admited?: No Does the pt Need Aspirin: No Condition: Stable Referrals: PRIMARY CARE, [Primary Care Provider] - 3-5 Days Time of Disposition: 02:44 (awaiting acceptance)
[2016-08-04 05:32] VITALS: BP 105/82
== END 2016-08-04 04:30 ==
LOC: ED 13:36
DX: F10.10 Alcohol abuse, uncomplicated (principal); I10 Essential (primary) hypertension; E11.9 Type 2 diabetes mellitus without complications; G89.29 Other chronic pain; F17.200 Nicotine dependence, unspecified, uncomplicated
CPT/HCPCS: 36415; 80048; 80307; 81001; 85025; 99285; G0480; 80320; 99283